=== PATIENT | male | born 1965 | race Caucasian/White ===

== ENCOUNTER 2019-12-14 09:04 | Emergency (ER) | payer MEDICAID ==
[~2019-12-14] VITALS: Ht 182.9 cm; Wt 93.2 kg
[~2019-12-14 09:04] MED LIST: CYCLOBENZAPRINE10 MG PO; VOLTAREN75 MG PO
[2019-12-14 09:10] VITALS: Ht 182.9 cm; Wt 93.2 kg
[2019-12-14 09:33] LABS: BASOPHILS 0.2 % (0-2); EOSINOPHILS 1.3 % (0-7); HEMATOCRIT 38.5 % (42.0-54.0); HEMOGLOBIN 12.7 g/dL (13.5-17.5); IMMATURE GRANULOCYTES 0.3 % (0-5); LYMPHOCYTES 11.5 % (15-50); MCH 29.7 pg (26.0-34.0); MCV 90.2 fL (80.0-100.0); MONOCYTES 9.1 % (2-11); NEUTROPHILS 77.6 % (40-80); PLATELET COUNT 192 10x3/uL (130-400); RBC 4.27 10x6/uL (4.20-6.10); RDW 13.4 % (11.5-14.5); WBC 10.8 10x3/uL (4.8-10.8)
[2019-12-14 09:44] LABS: INR 0.98 (0.85-1.17); PROTIME 12.9 SECONDS (11.6-15.0)
[2019-12-14 10:17] LABS: ALBUMIN 2.9 g/dL (3.4-5.0); ALKALINE PHOSPHATASE 88 U/L (30-120); ALT (SGPT) 58 U/L (10-68); BILIRUBIN - TOTAL 0.45 mg/dL (0.2-1.3); CALC OSMOLALITY 271 mosm/kg (275-300); CARBON DIOXIDE 25.6 mmol/L (21.0-32.0); CHLORIDE - SERUM 105 mmol/L (98-107); CREATININE - SERUM 0.7 mg/dL (0.6-1.3); GLUCOSE 97 mg/dL (74-106); PROTEIN - SERUM 5.6 g/dL (6.4-8.2); SODIUM 137 mmol/L (136-145); UREA NITROGEN 6 mg/dL (7-18); eGFR NON AFRICAN AMERICAN > 90 mL/min (90-120)
[2019-12-14] MEDS ORDERED: AUGMENTIN 875-11 TAB PO (12:00)
[2019-12-14] MEDS ORDERED: HYDROCODON-ACE1 EAC2 PO (12:01)
[2019-12-14 12:45] VITALS: BP 139/89
== END 2019-12-14 12:46 | disposition home or self-care (01) ==
LOC: D.ER 09:04
PROVIDERS: Family Medicine
DX: M54.5 Low back pain (principal); M79.10 Myalgia, unspecified site; V89.2XXA Person injured in unspecified motor-vehicle accident, traffic, initial encounter; Y93.9 Activity, unspecified; Y92.9 Unspecified place or not applicable; M25.512 Pain in left shoulder